=== PATIENT | female | born 1980 | race Caucasian/White ===

== ENCOUNTER → 2016-08-22 | Outpatient (CLI) | payer OTHER ==
[~2016-08-22] MED LIST: ALBUTEROL0.83 MG/ML IH; ALLERGY SHOTS; ASTELIN NASAL S34 ML NS; CARTIA; CARTIA XT180 MG PO; CYCLOSPORINE; EYE DROP; EZ TEARS; FLAGYL500 MG PO; FLOVENT 110MCG7.9 GM IH; IMURAN 50MG TAB50 MG PO; IMURAN50 MG PO; LORTAB 5/500 501 TAB PO; LYRICA 50MG CAP50 MG PO; MAXALT10 MG PO; NASONEX SPRAY17 GM; NEURONTIN100 MG PO; NEURONTIN300 MG/CAP PO; NEXIUM 20MG20 MG PO; NORVASC2.5 MG PO; OMEGA-31 SGL PO; PHENERGAN 25 TA25 MG PO; PRE-NATAL1 TA1 PO; PREDNISONE20 M1 PO; PRENATAL PLUS PO; PRENATAL PLUS1 TA1 PO; PROVENTIL0.09 MG/A1 IH; REGLAN 10MG10 MG/TAB; RESTASIS 60VL OU; RT ADVAIR HFA 2312 G IH; RT SPIRIVA18 MCG IH; TEMOVATE0.052 TOP; TUDORZA IH; TYLENOL W/COD1 UDTAB PO; VITAMIN D 400400 IU PO; ZOFRAN8 MG PO; [UNRECOGNIZED DRUG - OTHER]; [UNRECOGNIZED DRUG - OTHER] PO
[2016-08-22 16:39] LABS: ALANINE AMINOTRANSFERASE 38 U/L (9-52); ALBUMIN 4.3 gm/dL (3.5-5.0); ALKALINE PHOSPHATASE 76 U/L (50-136); ANION GAP 11 mmol/L (7-16); BILIRUBIN,TOTAL 0.7 mg/dL (0.0-1.0); BLOOD UREA NITROGEN 11 mg/dL (7-17); CALCIUM 9.2 mg/dL (8.4-10.2); CARBON DIOXIDE 27 mmol/L (22-30); CHLORIDE 102 mmol/L (98-107); CREATININE, serum 0.74 mg/dL (0.52-1.25); GLUCOSE 77 mg/dL (74-106); POTASSIUM 3.7 mmol/L (3.4-5.0); SODIUM 139 mmol/L (137-145); TOTAL PROTEIN 7.3 gm/dL (6.4-8.2)
[2016-08-22 16:48] LABS: C-REACTIVE PROTEIN < 0.5 mg/dL (0.0-0.9)
== END ==
LOC: COL.LAB 15:59
PROVIDERS: Internal Medicine Pulmonary Disease
DX: J45.40 Moderate persistent asthma, uncomplicated (principal)

== ENCOUNTER → 2016-08-25 | Outpatient (CLI) | payer OTHER | LOC: COL.LAB 13:30 | DX: R06.02 Shortness of breath (principal) ==

== ENCOUNTER → 2016-11-26 | Outpatient (CLI) | payer OTHER ==
[2016-11-26 16:00] LABS: BASO % 0.5 % (0.0-2.0); EOS # 0.3 (0.0-0.7); EOS % 5.5 % (0-4.0); GRAN # 3.6 (1.4-6.5); GRAN % 65.5 % (42.2-75.2); HEMATOCRIT 42.6 % (37.0-47.0); LYMPH # 0.9 (1.2-3.4); MEAN CELL VOLUME 88 fl (80.0-100.0); MEAN CORPUSCULAR HEMOGLOBIN 29 pg (27.0-31.0); MEAN CORPUSCULAR HGB CONC 33 g/dl (33.0-37.0); MEAN PLATELET VOLUME 9.4 fl (7.4-10.4); MONO # 0.6 (0.1-0.6); MONO % 11.3 % (1.7-9.3); PLATELET COUNT 285 K/mm3 (130-400); RED BLOOD COUNT 4.86 M/mm3 (4.10-5.30); WHITE BLOOD COUNT 5.5 K/mm3 (4.8-10.8)
== END ==
LOC: COL.LAB 15:36
PROVIDERS: Internal Medicine Pulmonary Disease
DX: J45.40 Moderate persistent asthma, uncomplicated (principal)

== ENCOUNTER → 2016-12-29 | Outpatient (CLI) | payer OTHER | LOC: COL.LAB 12:42 | DX: J45.40 Moderate persistent asthma, uncomplicated (principal) ==

== ENCOUNTER → 2017-01-15 | Outpatient (CLI) | payer OTHER | LOC: COL.RAD 13:06 | DX: N85.8 Other specified noninflammatory disorders of uterus (principal) ==

== ENCOUNTER 2017-03-19 17:08 | Emergency (ER) | payer OTHER ==
[~2017-03-19] VITALS: Ht 154.9 cm; Wt 59.1 kg
[2017-03-19 17:09] VITALS: TEMP 98.6
[2017-03-19 17:45] LABS: BASO % 0.2 % (0.0-2.0); EOS # 0.1 (0.0-0.7); EOS % 2.1 % (0-4.0); GRAN # 3.7 (1.4-6.5); GRAN % 63.2 % (42.2-75.2); HEMATOCRIT 44.3 % (37.0-47.0); LYMPH # 1.3 (1.2-3.4); LYMPH % 21.8 % (20.0-51.0); MEAN CELL VOLUME 87 fl (80.0-100.0); MEAN CORPUSCULAR HEMOGLOBIN 29 pg (27.0-31.0); MEAN CORPUSCULAR HGB CONC 34 g/dl (33.0-37.0); MEAN PLATELET VOLUME 9.4 fl (7.4-10.4); MONO # 0.7 (0.1-0.6); MONO % 12.5 % (1.7-9.3); PLATELET COUNT 253 K/mm3 (130-400); RED BLOOD COUNT 5.11 M/mm3 (4.10-5.30); WHITE BLOOD COUNT 5.8 K/mm3 (4.8-10.8)
[2017-03-19 17:49] LABS: COLLECTION METHOD CLEAN CATCH
[2017-03-19 17:58] LABS: ADJUSTED CALCIUM 9.3 mg/dL (8.4-10.2); ALANINE AMINOTRANSFERASE 38 U/L (9-52); ALBUMIN 4.5 gm/dL (3.5-5.0); ALKALINE PHOSPHATASE 72 U/L (50-136); ANION GAP 9 mmol/L (7-16); BILIRUBIN,TOTAL 0.7 mg/dL (0.0-1.0); BLOOD UREA NITROGEN 10 mg/dL (7-17); CALCIUM 9.7 mg/dL (8.4-10.2); CARBON DIOXIDE 26 mmol/L (22-30); CHLORIDE 103 mmol/L (98-107); CREATININE, serum 0.72 mg/dL (0.52-1.25); GLUCOSE 87 mg/dL (74-106); POTASSIUM 3.7 mmol/L (3.4-5.0); SODIUM 137 mmol/L (137-145); TOTAL PROTEIN 7.4 gm/dL (6.4-8.2)
[2017-03-19 18:02] LABS: C-REACTIVE PROTEIN < 0.5 mg/dL (0.0-0.9)
[2017-03-19 18:30] LABS: MUCOUS Present /lpf; SQUAMOUS EPITHELIAL 0-2 /hpf; URINE BACTERIA None Seen /hpf; URINE RBC 0-2 /hpf; URINE WBC 0-2 /hpf
[2017-03-19] MEDS ORDERED: MIDRIN 325 MG-11 CAP PO (18:31)
[2017-03-19] MEDS ORDERED: XOPENEX HF0.045 MG/A IH (18:32)
[2017-03-19 18:37] LABS: PH 5 (5-8); URINE APPEARANCE Clear; URINE BILIRUBIN Negative (NEGATIVE); URINE BLOOD Negative (NEGATIVE); URINE COLOR Yellow; URINE GLUCOSE Negative (NEGATIVE); URINE KETONE Trace (NEGATIVE); URINE LEUKOCYTE ESTERASE Negative (NEGATIVE); URINE PROTEIN(semi-quant) Negative (NEGATIVE); URINE UROBILINOGEN Negative (NEGATIVE)
[2017-03-19 19:00] VITALS: BP 109/80; PULSE 67
== END 2017-03-19 19:11 | disposition home or self-care (01) ==
LOC: COL.ER 17:08
PROVIDERS: Emergency Medicine
DX: R55 Syncope and collapse (principal); R51 Headache; Z86.2 Personal history of diseases of the blood and blood-forming organs and certain disorders involving the immune mechanism
CPT/HCPCS: J7030

== ENCOUNTER 2017-07-06 18:33 | Emergency (ER) | payer OTHER ==
[~2017-07-06] VITALS: Ht 154.9 cm; Wt 62.7 kg
[~2017-07-06 18:33] MED LIST changes: +MIDRIN 325 MG-11 CAP PO; +XOPENEX HF0.045 MG/A IH
[2017-07-06 18:35] VITALS: BP 122/82; PULSE 97; TEMP 97.8
[2017-07-06] MEDS ORDERED: LINZESS72 MCG PO (19:29)
[2017-07-06] MEDS ORDERED: RESTASIS 60VL (19:30)
[2017-07-06] MEDS ORDERED: POLYMYXIN B/TRIMETH OD (19:43)
== END 2017-07-06 19:48 | disposition home or self-care (01) ==
LOC: COL.ER 18:33
DX: H57.11 Ocular pain, right eye (principal); Z79.51 Long term (current) use of inhaled steroids

== ENCOUNTER 2017-12-16 00:19 | Emergency (ER) | payer OTHER ==
[~2017-12-16] VITALS: Ht 61 cm; Wt 61.8 kg
[~2017-12-16 00:19] MED LIST changes: +LINZESS72 MCG PO; +POLYMYXIN B/TRIMETH OD; +RESTASIS 60VL
[2017-12-16 01:04] LABS: BASO # 0.1 (0.0-0.2); BASO % 0.6 % (0.0-2.0); EOS # 0.2 (0.0-0.7); EOS % 1.8 % (0-4.0); GRAN # 6.4 (1.4-6.5); GRAN % 74.5 % (42.2-75.2); HEMATOCRIT 44.1 % (37.0-47.0); HEMOGLOBIN 14.4 g/dl (12.5-16.0); LYMPH # 1.2 (1.2-3.4); LYMPH % 14.1 % (20.0-51.0); MEAN CELL VOLUME 88 fl (80.0-100.0); MEAN CORPUSCULAR HEMOGLOBIN 29 pg (27.0-31.0); MEAN CORPUSCULAR HGB CONC 33 g/dl (33.0-37.0); MEAN PLATELET VOLUME 9.3 fl (7.4-10.4); MONO # 0.7 (0.1-0.6); MONO % 8.6 % (1.7-9.3); PLATELET COUNT 266 K/mm3 (130-400); REDCELL DISTRIBUTION WIDTH-CV 13.2 % (11.5-14.5)
[2017-12-16 01:09] LABS: INR 1.1 (0.8-3.0); PROTHROMBIN TIME 12.2 SECONDS (9.7-12.8)
[2017-12-16 01:14] LABS: ALANINE AMINOTRANSFERASE 34 U/L (9-52); ALBUMIN 4.1 gm/dL (3.5-5.0); ALKALINE PHOSPHATASE 77 U/L (50-136); ANION GAP 12 mmol/L (7-16); AST,SGOT 24 U/L (15-37); BILIRUBIN,TOTAL 0.4 mg/dL (0.0-1.0); BLOOD UREA NITROGEN 12 mg/dL (7-17); CARBON DIOXIDE 22 mmol/L (22-30); CHLORIDE 103 mmol/L (98-107); CREATININE, serum 0.64 mg/dL (0.52-1.25); GLUCOSE 87 mg/dL (74-106); POTASSIUM 3.7 mmol/L (3.4-5.0); SODIUM 138 mmol/L (137-145); TOTAL PROTEIN 7.1 gm/dL (6.4-8.2)
[2017-12-16 01:22] LABS: D-DIMER < 200.00 ng/mLDDu (200-230)
[2017-12-16 01:27] LABS: TROPONIN-I < 0.012 ng/mL (0.000-0.034)
[2017-12-16 01:30] LABS: PROLACTIN 43.2 ng/mL (3.0-18.6)
[2017-12-16 02:00] LABS: COLLECTION METHOD CLEAN CATCH
[2017-12-16 02:06] LABS: MUCOUS Present /lpf; PH 6 (5-8); SQUAMOUS EPITHELIAL 0-2 /hpf; URINE APPEARANCE Clear; URINE BACTERIA Rare /hpf; URINE BILIRUBIN Negative (NEGATIVE); URINE BLOOD Negative (NEGATIVE); URINE COLOR Yellow; URINE GLUCOSE Negative (NEGATIVE); URINE KETONE Negative (NEGATIVE); URINE LEUKOCYTE ESTERASE Negative (NEGATIVE); URINE NITRATE Negative (NEGATIVE); URINE PROTEIN(semi-quant) Negative (NEGATIVE); URINE RBC 0-2 /hpf; URINE UROBILINOGEN Negative (NEGATIVE)
[2017-12-16 05:00] VITALS: BP 102/67; PULSE 93
== END 2017-12-16 05:00 | disposition home or self-care (01) ==
LOC: COL.ER 00:19
PROVIDERS: Emergency Medicine
DX: R56.9 Unspecified convulsions (principal); R55 Syncope and collapse; J45.909 Unspecified asthma, uncomplicated; I73.00 Raynaud's syndrome without gangrene; G43.909 Migraine, unspecified, not intractable, without status migrainosus; Z98.890 Other specified postprocedural states; Z98.51 Tubal ligation status
CPT/HCPCS: J7030

== ENCOUNTER 2017-12-28 09:33 | Outpatient (CLI) | payer OTHER ==
[2017-12-28 10:28] VITALS: BP 105/70; PULSE 70
[2017-12-28 10:30] VITALS: BP 105/70; PULSE 69
[2017-12-28] MEDS ORDERED: CEPHALEXIN500 M1 PO (11:48)
[2017-12-28 12:40] VITALS: BP 105/60; PULSE 78; TEMP 97.9
== END 2017-12-28 12:48 | disposition home or self-care (01) ==
LOC: COL.CAR 09:33
DX: R55 Syncope and collapse (principal); R00.0 Tachycardia, unspecified; R00.2 Palpitations; Z88.6 Allergy status to analgesic agent; Z88.8 Allergy status to other drugs, medicaments and biological substances; Z82.61 Family history of arthritis

== ENCOUNTER → 2018-01-04 | Outpatient (CLI) | payer OTHER ==
[~2018-01-04] MED LIST changes: +CEPHALEXIN500 M1 PO
== END ==
LOC: COL.CARD 12:58
DX: R55 Syncope and collapse (principal)

== ENCOUNTER 2018-02-15 13:57 | Outpatient (CLI) | payer OTHER ==
[~2018-02-15] VITALS: Ht 61 cm; Wt 63.6 kg
[2018-02-15 14:15] VITALS: BP 110/60; PULSE 90; TEMP 98.2
== END 2018-02-15 15:57 | disposition home or self-care (01) ==
LOC: EUO 13:57
DX: J45.40 Moderate persistent asthma, uncomplicated (principal); Z79.899 Other long term (current) drug therapy

== ENCOUNTER 2018-03-15 14:35 | Outpatient (CLI) | payer OTHER ==
[~2018-03-15] VITALS: Ht 152.4 cm; Wt 62.8 kg
[2018-03-15 15:09] VITALS: BP 111/67; PULSE 72; TEMP 98.6
== END 2018-03-15 15:46 | disposition home or self-care (01) ==
LOC: EUO 14:35
DX: J45.40 Moderate persistent asthma, uncomplicated (principal); Z79.899 Other long term (current) drug therapy

== ENCOUNTER → 2018-04-08 | Outpatient (CLI) | payer OTHER | LOC: COL.PUL 03-26 11:20 | DX: Z02.71 Encounter for disability determination (principal) ==

== ENCOUNTER 2018-04-12 12:55 | Outpatient (CLI) | payer OTHER ==
[~2018-04-12] VITALS: Ht 152.4 cm; Wt 63.4 kg
[2018-04-12 13:52] VITALS: BP 111/61; PULSE 77; TEMP 98.5
== END 2018-04-12 14:55 | disposition home or self-care (01) ==
LOC: EUO 12:55
DX: J45.40 Moderate persistent asthma, uncomplicated (principal); Z79.899 Other long term (current) drug therapy

== ENCOUNTER 2018-05-10 14:40 | Outpatient (CLI) | payer OTHER ==
[~2018-05-10] VITALS: Ht 152.4 cm; Wt 64.0 kg
[2018-05-10 15:27] VITALS: BP 118/62; PULSE 62; TEMP 98
== END 2018-05-10 15:27 | disposition home or self-care (01) ==
LOC: EUO 14:40
DX: J45.40 Moderate persistent asthma, uncomplicated (principal); Z79.899 Other long term (current) drug therapy

== ENCOUNTER 2018-06-08 15:55 | Outpatient (CLI) | payer OTHER | END 2018-06-08 16:37 | disposition home or self-care (01) | LOC: EUO 15:55 | DX: J45.40 Moderate persistent asthma, uncomplicated (principal); Z79.899 Other long term (current) drug therapy ==

== ENCOUNTER 2018-07-06 14:10 | Outpatient (CLI) | payer OTHER ==
[~2018-07-06] VITALS: Ht 152.4 cm; Wt 61.0 kg
[2018-07-06 15:03] VITALS: BP 116/69; PULSE 72; TEMP 98.1
== END 2018-07-06 15:07 | disposition home or self-care (01) ==
LOC: EUO 14:10
DX: J45.40 Moderate persistent asthma, uncomplicated (principal); Z79.899 Other long term (current) drug therapy

== ENCOUNTER 2018-08-03 15:28 | Outpatient (CLI) | payer OTHER ==
[~2018-08-03] VITALS: Ht 152.4 cm; Wt 47.7 kg
[2018-08-03 15:46] VITALS: BP 110/62; PULSE 76; TEMP 97.8
== END 2018-08-03 16:10 | disposition home or self-care (01) ==
LOC: EUO 15:28
DX: J45.40 Moderate persistent asthma, uncomplicated (principal); Z79.899 Other long term (current) drug therapy

== ENCOUNTER 2018-09-09 14:31 | Outpatient (CLI) | payer OTHER ==
[~2018-09-09] VITALS: Ht 152.4 cm; Wt 131.0 kg
[2018-09-09 14:56] VITALS: BP 119/73; PULSE 68; TEMP 98.3
[2018-09-09] MEDS ORDERED: AMITIZA 8MCG8 MCG PO ×2 (15:20→15:34)
== END 2018-09-09 15:30 | disposition home or self-care (01) ==
LOC: EUO 14:31
DX: J45.40 Moderate persistent asthma, uncomplicated (principal); Z79.899 Other long term (current) drug therapy

== ENCOUNTER 2018-10-05 15:47 | Outpatient (CLI) | payer OTHER ==
[~2018-10-05] VITALS: Ht 152.4 cm; Wt 60.7 kg
[~2018-10-05 15:47] MED LIST changes: +AMITIZA 8MCG8 MCG PO
[2018-10-05 16:17] VITALS: BP 119/623; PULSE 73; TEMP 97.9
== END 2018-10-05 16:23 | disposition home or self-care (01) ==
LOC: EUO 15:47
DX: J45.40 Moderate persistent asthma, uncomplicated (principal); Z79.899 Other long term (current) drug therapy

== ENCOUNTER 2018-11-12 15:35 | Outpatient (CLI) | payer OTHER ==
[~2018-11-12] VITALS: Ht 152.4 cm; Wt 59.1 kg
[2018-11-12 15:49] VITALS: BP 103/57; PULSE 88; TEMP 97.7
--- NOTE | 2018-11-12 16:13 | NUR ---
Patient tolerated subcutaneous injection to left upper arm. Bandaid applied. No further needs expressed from patient. Patient walked independently outside with family.
== END 2018-11-12 18:00 | disposition home or self-care (01) ==
LOC: EUO 15:35
DX: Z79.899 Other long term (current) drug therapy (principal)

== ENCOUNTER 2018-12-10 16:24 | Outpatient (CLI) | payer OTHER ==
[~2018-12-10] VITALS: Ht 152.4 cm; Wt 48.0 kg
[2018-12-10 17:00] VITALS: BP 103/62; PULSE 70; TEMP 98
== END 2018-12-10 17:14 | disposition home or self-care (01) ==
LOC: EUO 16:24
DX: J45.40 Moderate persistent asthma, uncomplicated (principal); Z79.899 Other long term (current) drug therapy

== ENCOUNTER 2019-01-10 15:47 | Outpatient (CLI) | payer OTHER ==
[~2019-01-10] VITALS: Ht 152.4 cm; Wt 58.0 kg
[~2019-01-10 15:47] MED LIST changes: +AMITIZA24 MCG PO; -NEXIUM 20MG20 MG PO; +NEXIUM 40MG40 MG PO
[2019-01-10] MEDS ORDERED: XOPENEX HF0.045 MG/A IH (16:05)
[2019-01-10 16:10] VITALS: BP 113/60; PULSE 77; TEMP 98.1
== END 2019-01-10 18:00 | disposition home or self-care (01) ==
LOC: EUO 15:47
DX: J45.40 Moderate persistent asthma, uncomplicated (principal); Z79.899 Other long term (current) drug therapy
CPT/HCPCS: J2182

== ENCOUNTER 2019-02-07 06:32 | Outpatient (CLI) | payer OTHER ==
[~2019-02-07] VITALS: Ht 152.4 cm; Wt 58.5 kg
[~2019-02-07 06:32] MED LIST changes: -NEXIUM 40MG40 MG PO; +PRIL40 PO
[2019-02-07 06:43] VITALS: BP 109/68; PULSE 701; TEMP 98
== END 2019-02-07 10:57 | disposition home or self-care (01) ==
LOC: EUO 06:32
DX: Z79.899 Other long term (current) drug therapy (principal)
CPT/HCPCS: J2182

== ENCOUNTER 2019-03-07 06:34 | Outpatient (CLI) | payer OTHER ==
[~2019-03-07] VITALS: Ht 152.4 cm; Wt 58.3 kg
[2019-03-07 07:31] VITALS: BP 97/61; PULSE 65; TEMP 98.1
== END 2019-03-07 08:55 | disposition home or self-care (01) ==
LOC: EUO 06:34
DX: Z79.899 Other long term (current) drug therapy (principal)
CPT/HCPCS: J2182

== ENCOUNTER 2019-04-04 07:50 | Outpatient (CLI) | payer OTHER ==
[~2019-04-04] VITALS: Ht 152.4 cm; Wt 50.6 kg
[2019-04-04 08:00] VITALS: BP 101/56; PULSE 77; TEMP 98
== END 2019-04-04 08:35 | disposition home or self-care (01) ==
LOC: EUO 07:50
DX: Z79.899 Other long term (current) drug therapy (principal)
CPT/HCPCS: J2182

== ENCOUNTER 2019-05-02 06:49 | Outpatient (CLI) | payer OTHER ==
[~2019-05-02] VITALS: Ht 152.4 cm; Wt 58.5 kg
[2019-05-02 08:00] VITALS: BP 102/65; PULSE 98; TEMP 98.3
== END 2019-05-02 09:13 | disposition home or self-care (01) ==
LOC: EUO 06:49
DX: Z79.899 Other long term (current) drug therapy (principal)
CPT/HCPCS: J2182

== ENCOUNTER 2019-05-30 07:16 | Outpatient (CLI) | payer OTHER ==
[~2019-05-30] VITALS: Ht 152.4 cm; Wt 58.5 kg
[2019-05-30 07:39] VITALS: BP 102/55; PULSE 83; TEMP 98.1
== END 2019-05-30 08:03 | disposition home or self-care (01) ==
LOC: EUO 07:16
DX: Z79.899 Other long term (current) drug therapy (principal)
CPT/HCPCS: J2182

== ENCOUNTER 2019-06-27 07:56 | Outpatient (CLI) | payer OTHER ==
[~2019-06-27] VITALS: Ht 152.4 cm; Wt 61.3 kg
[2019-06-27 08:11] VITALS: BP 108/72; PULSE 79; TEMP 97.9
== END 2019-06-27 09:01 | disposition home or self-care (01) ==
LOC: EUO 07:56
DX: Z79.899 Other long term (current) drug therapy (principal)
CPT/HCPCS: J2182

== ENCOUNTER 2019-07-27 09:57 | Outpatient (CLI) | payer OTHER ==
[~2019-07-27] VITALS: Ht 152.4 cm; Wt 61.0 kg
[2019-07-27 10:13] VITALS: BP 102/60; PULSE 77; TEMP 97.9
== END 2019-07-27 11:00 | disposition home or self-care (01) ==
LOC: EUO 09:57
DX: J45.40 Moderate persistent asthma, uncomplicated (principal); Z79.899 Other long term (current) drug therapy
CPT/HCPCS: J2182

== ENCOUNTER 2019-08-24 07:35 | Outpatient (CLI) | payer OTHER ==
[~2019-08-24] VITALS: Ht 152.4 cm; Wt 62.0 kg
[2019-08-24 08:04] VITALS: BP 128/80; PULSE 86; TEMP 98.5
== END 2019-08-24 08:54 | disposition home or self-care (01) ==
LOC: EUO 07:35
DX: Z79.899 Other long term (current) drug therapy (principal)
CPT/HCPCS: J2182

== ENCOUNTER 2020-03-11 11:59 | Emergency (ER) | payer OTHER ==
[~2020-03-11] VITALS: Ht 154.9 cm; Wt 57.7 kg
[2020-03-11] MEDS ORDERED: PREDNISONE20 MG PO (14:05)
[2020-03-11 14:10] VITALS: BP 118/64; PULSE 88; TEMP 98.1
== END 2020-03-11 14:18 | disposition home or self-care (01) ==
LOC: COL.ER 11:59
DX: J45.901 Unspecified asthma with (acute) exacerbation (principal); Z20.828 Contact with and (suspected) exposure to other viral communicable diseases; Z88.5 Allergy status to narcotic agent; Z88.6 Allergy status to analgesic agent; Z88.8 Allergy status to other drugs, medicaments and biological substances
CPT/HCPCS: J7512

== ENCOUNTER 2020-12-23 11:28 | Emergency (ER) | payer OTHER ==
[~2020-12-23] VITALS: Ht 154.9 cm; Wt 67.3 kg
[~2020-12-23 11:28] MED LIST changes: +PREDNISONE20 MG PO
[2020-12-23 11:45] VITALS: TEMP 98.2
[2020-12-23] MEDS ORDERED: PREDNISONE20 MG PO (14:43)
[2020-12-23] MEDS ORDERED: ZITHROMAX Z PA250 MG PO (14:43)
[2020-12-23] MEDS ORDERED: NEB MC (14:46)
[2020-12-23] MEDS ORDERED: ALBUTEROL0.83 MG/ML IH (14:46)
[2020-12-23 15:05] VITALS: BP 103/59; PULSE 79
== END 2020-12-23 15:06 | disposition home or self-care (01) ==
LOC: COL.ER 11:28
DX: J45.909 Unspecified asthma, uncomplicated (principal); M30.1 Polyarteritis with lung involvement [Churg-Strauss]; I73.00 Raynaud's syndrome without gangrene; Z79.52 Long term (current) use of systemic steroids; Z79.899 Other long term (current) drug therapy

== ENCOUNTER 2022-05-20 10:04 | Emergency (ER) | payer OTHER ==
[~2022-05-20] VITALS: Ht 154.9 cm; Wt 72.7 kg
[~2022-05-20 10:04] MED LIST changes: +NEB MC; +ZITHROMAX Z PA250 MG PO
[2022-05-20 10:11] VITALS: TEMP 96.9
[2022-05-20] MEDS ORDERED: FLEXERIL 1010 MG/TAB PO (11:34)
[2022-05-20 11:49] VITALS: BP 111/70; PULSE 65
== END 2022-05-20 11:49 | disposition home or self-care (01) ==
LOC: COL.ER 10:04
DX: M54.6 Pain in thoracic spine (principal)
CPT/HCPCS: J2360

== ENCOUNTER 2023-02-06 14:17 | Emergency (ER) | payer OTHER ==
[~2023-02-06] VITALS: Ht 154.9 cm; Wt 71.3 kg
[~2023-02-06 14:17] MED LIST changes: +00186-0370-20 IH; +BOTOX 100100 U/VIAL IM; +FASENRA PE30 MG/1 ML SQ; +FLEXERIL 1010 MG/TAB PO; +Monodox PO; +OMEGA-3 1000 MG1 CAP PO; -OMEGA-31 SGL PO; +QVAR REDIHALE10.6 G1 IH; +TESSALON P100 MG/CAP PO; +ZOFRAN ODT4 MG PO
[2023-02-06 16:38] LABS: BASO % 0.2 % (0.0-2.0); GRAN % 68.9 % (42.2-75.2); HEMATOCRIT 46.9 % (37.0-47.0); HEMOGLOBIN 15.6 g/dl (12.5-16.0); LYMPH % 22.7 % (20.0-51.0); MEAN CELL VOLUME 84 fl (80.0-100.0); MEAN CORPUSCULAR HEMOGLOBIN 28 pg (27-31); MEAN CORPUSCULAR HGB CONC 33 g/dl (33.0-37.0); MONO # 0.7 K/mm3 (0.1-0.6); PLATELET COUNT 345 K/mm3 (130-400); RED BLOOD COUNT 5.58 M/mm3 (4.10-5.30); REDCELL DISTRIBUTION WIDTH-CV 13.2 % (11.5-14.5)
[2023-02-06 16:53] LABS: ALBUMIN 4.3 gm/dL (3.5-5.0); BILIRUBIN,TOTAL 0.7 mg/dL (0.2-1.2); C-REACTIVE PROTEIN 0.32 mg/dL (0.00-0.50); CALCIUM 9.8 mg/dL (8.4-10.2); CREATININE, serum 0.73 mg/dL (0.57-1.11); POTASSIUM 3.5 mmol/L (3.5-4.5); TOTAL PROTEIN 7.8 gm/dL (6.2-8.1)
[2023-02-06 16:54] LABS: COLLECTION METHOD CLEAN CATCH
[2023-02-06 17:10] LABS: STREP SCREEN NEGATIVE
[2023-02-06 17:29] LABS: URINE APPEARANCE Clear (CLEAR/HAZY); URINE BLOOD TRACE-INTACT (NEGATIVE); URINE COLOR Yellow (YELLOW); URINE GLUCOSE Negative (NEGATIVE); URINE KETONE 1+ (NEGATIVE); URINE NITRATE Negative (NEGATIVE); URINE PROTEIN(semi-quant) Negative (NEGATIVE); URINE UROBILINOGEN 0.2 E.U/dL (0.2-1.0)
[2023-02-06 17:30] LABS: SQUAMOUS EPITHELIAL 0-2 /hpf (0-10); URINE BACTERIA Rare /hpf (NONE SEEN); URINE RBC 0-2 /hpf (0-2)
[2023-02-06 17:57] VITALS: BP 105/70; PULSE 76; TEMP 98
== END 2023-02-06 17:58 | disposition home or self-care (01) ==
LOC: COL.ER 14:17
PROVIDERS: Family Medicine
DX: M30.1 Polyarteritis with lung involvement [Churg-Strauss] (principal); R53.81 Other malaise
CPT/HCPCS: J2405; J7120

== ENCOUNTER 2023-05-04 09:20 | Emergency (ER) | payer OTHER ==
[~2023-05-04] VITALS: Ht 154.9 cm; Wt 72.7 kg
[2023-05-04 09:27] VITALS: TEMP 98.4
[2023-05-04] MEDS ORDERED: NS 1,000 ML IV ONE (10:15)
[2023-05-04 10:30] LABS: COLLECTION METHOD CLEAN CATCH
[2023-05-04 10:44] LABS: BASO % 0.1 % (0.0-2.0); GRAN # 4.8 K/mm3 (1.4-6.5); GRAN % 67.1 % (42.2-75.2); HEMATOCRIT 46.7 % (37.0-47.0); HEMOGLOBIN 15.3 g/dl (12.5-16.0); LYMPH # 1.6 K/mm3 (1.2-3.4); LYMPH % 22.5 % (20.0-51.0); MEAN CELL VOLUME 84 fl (80.0-100.0); MEAN CORPUSCULAR HEMOGLOBIN 28 pg (27-31); MEAN CORPUSCULAR HGB CONC 33 g/dl (33.0-37.0); MEAN PLATELET VOLUME 9.6 fl (7.4-10.4); MONO # 0.7 K/mm3 (0.1-0.6); PLATELET COUNT 280 K/mm3 (130-400); RED BLOOD COUNT 5.53 M/mm3 (4.10-5.30); REDCELL DISTRIBUTION WIDTH-CV 13.5 % (11.5-14.5)
[2023-05-04] MEDS ORDERED: Benzonatate 100 MG CAP PO ONE (10:45)
[2023-05-04 10:59] LABS: ALBUMIN 3.9 gm/dL (3.5-5.0); BILIRUBIN,TOTAL 0.5 mg/dL (0.2-1.2); CALCIUM 9.4 mg/dL (8.4-10.2); CREATININE, serum 0.73 mg/dL (0.57-1.11); POTASSIUM 3.9 mmol/L (3.5-4.5); TOTAL PROTEIN 7.2 gm/dL (6.2-8.1)
[2023-05-04 11:11] LABS: URINE APPEARANCE Clear (CLEAR/HAZY); URINE BLOOD Negative (NEGATIVE); URINE COLOR Yellow (YELLOW); URINE GLUCOSE Negative (NEGATIVE); URINE KETONE TRACE (NEGATIVE); URINE NITRATE Negative (NEGATIVE); URINE PROTEIN(semi-quant) TRACE (NEGATIVE); URINE RBC None Seen /hpf (0-2); URINE UROBILINOGEN 0.2 E.U/dL (0.2-1.0)
[2023-05-04 11:12] LABS: SQUAMOUS EPITHELIAL 0-2 /hpf (0-10)
[2023-05-04 12:46] VITALS: BP 107/75; PULSE 94
== END 2023-05-04 12:46 | disposition home or self-care (01) ==
LOC: COL.ER 09:20
PROVIDERS: Physician Assistant
DX: B34.9 Viral infection, unspecified (principal); R50.9 Fever, unspecified; R09.81 Nasal congestion; R51.9 Headache, unspecified; R05.9 Cough, unspecified; E86.0 Dehydration; R00.0 Tachycardia, unspecified; J45.909 Unspecified asthma, uncomplicated
CPT/HCPCS: J7030

== ENCOUNTER → 2023-05-06 | Outpatient (CLI) | payer OTHER | LOC: COL.LAB 16:22 | DX: Z01.89 Encounter for other specified special examinations (principal) ==